=== PATIENT | male | born 1985 | race Caucasian/White ===

== ENCOUNTER 2019-06-27 17:22 | Emergency (ER) | payer OTHER, SELFPAY ==
[2019-06-27 17:31] VITALS: BP 171/103; PULSE 74; RESP 18; TEMP 37.4; O2SAT 97
--- NOTE | 2019-06-27 17:40 | ED.WOUNDLAC ---
HPI - Wound/Laceration General Chief Complaint: Wound/Laceration Stated Complaint: dog bites Time Seen by Provider: 06/27/19 17:40 Source: patient and family Limitations: no limitations History of Present Illness HPI narrative: Patient here with multiple superficial scratches from dog bite. Multiple areas to right lower leg and left lower leg. Patient states that he and his boss just got off work and were in a parking lot and a pitbull mix came up to him and attacked him. Patient does not know when his last tetanus shot was. Patient cleansed the area prior to arrival with peroxide and normal saline. No active bleeding. All wounds are superficial. Patient filled out paperwork to report dog bite. Patient denies any other injuries. Related Data Home Medications Medication Instructions Recorded Confirmed esomeprazole magnesium [Nexium] 40 mg PO DAILY 06/27/19 06/27/19 Allergies Allergy/AdvReac Type Severity Reaction Status Date / Time No Known Allergies Allergy Verified 06/27/19 17:37 Review of Systems Review of Systems: Narrative: CONSTITUTIONAL: Denies fever, chills, or sweats. EYES: Denies visual changes, redness, or discharge. ENT: Denies rhinorrhea, congestion, sore throat, or otalgia. CARDIOVASCULAR: Denies chest pain, palpitations, or edema. RESPIRATORY: Denies cough or dyspnea. GASTROINTESTINAL: Denies abdominal pain, nausea, vomiting, or diarrhea. GENITOURINARY: Denies dysuria or hematuria. SKIN: Denies rash or itching. Multiple superficial scratches to both lower extremities MUSCULOSKELETAL: Denies back pain, joint pain, or myalgia. NEUROLOGIC: Denies headache, numbness, or weakness. PSYCHIATRIC: Denies anxiety or depression. PMFSH Comments At time of signature, agree with nursing past medical, surgical, social and family history. There is no relevant family history pertinent to the presenting complaint Exam Narrative: Exam Narrative: GENERAL: Well-appearing, well-nourished, and in no acute distress. HEAD: Normocephalic, atraumatic. EYES: PERRLA and EOMI. ENT: Nares clear, no rhinorrhea or epistaxis. Mucous membranes moist. NECK: Supple. CHEST: Clear to auscultation. No respiratory distress. HEART: Regular rate and rhythm. No murmur heard. Normal peripheral pulses. ABDOMEN: Soft, nontender, nondistended, normal active bowel sounds. EXTREMITIES: Normal range of motion. No edema. SKIN: Warm, dry, no rash. Multiple superficial abrasions of various sizes from dog bite to right lower extremity and left lower extremity NEURO: No focal deficits. Alert and oriented x3. Nicole Coma Scale Eye Opening: Spontaneous 4 Nicole Coma Scale Motor: Obeys Commands 6 [place] Coma Scale Verbal: Oriented 5 [place] Coma Scale Total 15 Course Vital Signs Vital signs: Vital Signs Temperature 37.4 C 06/27/19 17:31 Pulse Rate 74 06/27/19 17:31 Respiratory Rate 18 06/27/19 17:31 Blood Pressure 171/103 H 06/27/19 17:31 Pulse Oximetry 97 06/27/19 17:31 Temperature 37.4 C 06/27/19 17:31 Pulse Rate 74 06/27/19 17:31 Respiratory Rate 18 06/27/19 17:31 Blood Pressure 171/103 H 06/27/19 17:31 Pulse Oximetry 97 06/27/19 17:31 Addressed elevated BP today. Today's blood pressure higher than recommended range. Discussed importance of follow -up with PCP and possible buttermaker helper effects/cardiovascular events related to HTN. Currently patient denies headache, dizziness, vision changes, CP or shortness of breath. MDM - Wound/Laceration Differential Diagnosis Differential diagnosis: Likely laceration, abscess, abrasion, avulsion of skin and other (Dog bite) Critical Care Time Critical Care Time Critical Care Time: No Discharge Plan Discharge Clinical Impression: Dog bite of extremity, Abrasion Patient Disposition: Home, Self-Care Condition: Stable Instructions: Antibiotic Form Additional Instructions: Keep the area clean and dry Wash with antibacterial soap and water May peg
[2019-06-27] MEDS: TETANUS,DIPHTHERIA,AC PERTUSSIS ADULT 0.5 ML (ADACEL) IM (17:43)
[2019-06-27 18:03] VITALS: BP 168/88
== END 2019-06-27 18:03 | disposition home or self-care (01) ==
PROVIDERS: Emergency Provider Nurse Practitioner Family
DX: S80.811A Abrasion, right lower leg, initial encounter (principal); S80.812A Abrasion, left lower leg, initial encounter; W54.0XXA Bitten by dog, initial encounter; Z23 Encounter for immunization; K21.9 Gastro-esophageal reflux disease without esophagitis
CPT/HCPCS: 90471; 90715; 99213; G0463

== ENCOUNTER 2022-04-08 09:52 | Emergency (ER) | payer OTHER, SELFPAY ==
[2022-04-08 09:58] VITALS: BP 142/88; PULSE 100; RESP 20; TEMP 36.3; O2SAT 96
--- NOTE | 2022-04-08 10:49 | ED.URI ---
HPI - URI/Sore Throat General Chief Complaint: Upper Respiratory Infection Stated Complaint: Cough/Fever/Dizziness Time Seen by Provider: 04/08/22 10:50 Source: patient and RN notes reviewed Mode of arrival: ambulatory Limitations: no limitations History of Present Illness HPI Narrative: 36-year-old male presented for complaint of headache, body aches, sinus pressure/congestion, cough, fever/chills. onset 3 days. Patient is a 1 pack per day smoker. Endorses some sob with coughing. Denies wheezing, nausea, vomiting. Not taking anything for symptoms. Endorses his is sick. MD elicited complaint: cough Related Data Home Medications Medication Instructions Recorded Confirmed esomeprazole magnesium 40 mg 40 mg PO DAILY 06/27/19 04/08/22 capsule,delayed release (Nexium) Allergies Allergy/AdvReac Type Severity Reaction Status Date / Time No Known Allergies Allergy Verified 04/08/22 10:27 Review of Systems Review of Systems: ROS per HPI Exam Narrative: GENERAL: Ill-appearing, nontoxic EYES: PERRLA, conjunctivae clear ENT: Mucous membranes moist. TMs pearly morrison with dull light reflex bilaterally; no tragal tenderness. Oropharynx erythematous without lesions or exudate CHEST: Clear to auscultation, breath sounds equal. No wheezing, rhonchi, rales, or stridor. No respiratory distress, speaks in full sentences. HEART: Regular rate and rhythm. No murmur heard. SKIN: Warm, dry, no rash. NEURO: Alert and oriented x3. PSYCH: Normal mood and affect Course Course Emergency Course: Patient is aware of diagnosis, understands and agrees to treatment plan. Anticipatory guidance given. Patient agrees to follow-up as directed and is aware of reasons to seek care at the emergency department. Portions of this record may have been created with voice recognition software Level of Care: Express Care Visit Vital Signs Vital signs: Vital Signs Temperature 97.4 F L 04/08/22 09:58 Pulse Rate 100 04/08/22 09:58 Respiratory Rate 20 04/08/22 09:58 Blood Pressure 142/88 H 04/08/22 09:58 Pulse Oximetry 96 04/08/22 09:58 Oxygen Delivery Room Air 04/08/22 09:58 Temperature 97.4 F L 04/08/22 09:58 Pulse Rate 100 04/08/22 09:58 Respiratory Rate 20 04/08/22 09:58 Blood Pressure 142/88 H 04/08/22 09:58 Pulse Oximetry 96 04/08/22 09:58 Oxygen Delivery Room Air 04/08/22 09:58 reviewed MDM - URI/Sore Throat MDM Narrative Medical decision making narrative: due to lack of resources, unable to perform influenza test at this time. patient is aware and understands. Advised supportive measures and signs/symptoms to go to the ER. Pt is appropriate for outpt treatment and f/u. Differential Diagnosis Differential diagnosis: Likely upper respiratory infection, viral infection, bronchitis and influenza Discharge Plan Discharge Clinical Impression: Viral infection Patient Disposition: Home, Self-Care Condition: Stable Instructions: Viral Syndrome (ED) Additional Instructions: You should avoid crowds until you are fever free for 24 hours without the use of fever reducing medications, or the symptoms are improved Rest. Drink plenty of fluids. Tylenol 1000mg every 8 hours as needed for pain/fever Recommend Flonase spray and Zyrtec (or Claritin/Sherlyn) for sinus pressure/congestion over the counter Cough syrup may cause drowsiness; avoid driving or take it at night time. Follow up with your primary care provider as needed in 1-2 weeks Go to the ER for worsening symptoms or concerns Prescriptions: New prednisone 50 mg tablet 50 mg PO DAILY Qty: 5 0RF No Action esomeprazole magnesium [Nexium] 40 mg Capsule,Delayed Release(Dr/Ec) 40 mg PO DAILY amoxicillin-pot clavulanate [Augmentin] 875-125 mg tablet 1 tablet PO Q12H 5 Days Qty: 10 0RF Follow-up/Referrals: PHYSICIAN,OPHTHALMOLOGY SURGICAL TECHNICIAN [Primary Care Provider] - Stand Alone Forms: Work/School Release IP
== END 2022-04-08 11:02 | disposition home or self-care (01) ==
PROVIDERS: Emergency Provider Nurse Practitioner Family
DX: B34.9 Viral infection, unspecified (principal); F17.290 Nicotine dependence, other tobacco product, uncomplicated
CPT/HCPCS: 99213; G0463

== ENCOUNTER 2024-02-15 08:35 | Outpatient (CLI) | payer OTHER, SELFPAY ==
[2024-02-15 18:48] LABS: Basophils Absolute Auto 0.1 K/mm3 (0.0-0.1); Basophils Percent Auto 1.1 % (0.2-1.2); Eosinophils Absolute Auto 0.2 K/mm3 (0-0.3); Hematocrit 49.3 % (42.0-52.0); Hemoglobin 15.9 g/dL (14.0-18.0); Immature Granulocyte Absolute 0.01 K/mm3 (0.00-0.031); Immature Granulocyte Percent A 0.1 % (0-0.5); Lymphocytes Absolute Auto 1.83 K/mm3 (0.9-3.2); Lymphocytes Percent Auto 25.8 % (18.3-44.2); Mean Corpuscular HGB Conc 32.3 g/dl (32-36); Mean Corpuscular Hemoglobin 29.7 pg (26-34); Mean Corpuscular Volume 92.1 fl (80-100); Mean Platelet Volume 10.5 fl (7.4-10.4); Monocytes Absolute Auto 0.5 K/mm3 (0.1-0.6); Monocytes Percent Auto 7.2 % (2.6-8.5); Neutrophils Absolute Auto 4.5 K/mm3 (1.3-6.7); Neutrophils Percent Auto 62.8 % (45.5-73.1); Platelet Count Result 265 k/mm3 (150-375); Red Blood Count 5.35 M/mm3 (4.6-6.20); Red Cell Distribution Width 13.1 % (11.5-14.5); White Blood Count 7.1 K/mm3 (4.5-10.0)
[2024-02-15 19:19] LABS: Alanine Aminotransferase 37 U/L (6-50); Albumin Level 4.1 g/dL (3.5-5.1); Alkaline Phosphatase 76 U/L (38-126); Anion Gap 11 mmol/L (4-12); Aspartate Amino Transferase 48 U/L (17-59); Bilirubin,Total 0.3 mg/dL (0.2-1.3); Blood Urea Nitrogen 16 mg/dL (9-20); Calcium 9.3 mg/dL (8.4-10.2); Carbon Dioxide 22 mmol/L (22-30); Chloride 107 mmol/L (98-107); Cholesterol 182 mg/dL (0-200); Estimated Glomerular Filt Rate > 60; Glucose 73 mg/dL (65-110); HDL Direct 34 mg/dL; Magnesium 2.3 mg/dL (1.6-2.3); Potassium 3.9 mmol/L (3.4-5.0); Sodium 140 mmol/L (137-145); Triglycerides 170 mg/dL (<150)
[2024-02-15 19:29] LABS: Hemoglobin A1C 5.3 % (<5.7)
[2024-02-15 19:42] LABS: LDL Cholesterol Direct 110 mg/dL
[2024-02-20 22:08] LABS: Testosterone Free 35.2 pg/mL (35.0-155.0); Testosterone Total 245 ng/dL (250-1100)
== END 2024-02-15 08:36 | disposition home or self-care (01) ==
PROVIDERS: PCP Nurse Practitioner Adult Health; Visit Provider Nurse Practitioner Adult Health
DX: E66.01 Morbid (severe) obesity due to excess calories (principal); I10 Essential (primary) hypertension; N52.9 Male erectile dysfunction, unspecified
CPT/HCPCS: 36415; 80053; 80061; 83036; 83735; 84402; 84403; 84443; 85025

== ENCOUNTER 2024-03-13 15:42 | Outpatient (CLI) | payer OTHER, SELFPAY ==
--- NOTE | ~2024-03-13 | US_ITS ---
EXAMINATION: US renal BI DATE: 03/13/2024 16:00 INDICATION: Essential, primary hypertension TECHNIQUE: Multiple ultrasound grayscale images of the kidneys were obtained. COMPARISON: None. FINDINGS: The right kidney measures 10.0 x 5.1 x 6.1 cm. The left kidney measures 10.8 x 4.9 x 5.3 cm. The kidn eys demonstrate normal echogenicity. There is no hydronephrosis in either kidney. No stones identifi ed. The bladder is normal. IMPRESSION: 1. Normal kidneys without hydronephrosis. Reviewed, dictated and finalized at location B. CLERK PASSENGER
== END 2024-03-13 15:43 | disposition home or self-care (01) ==
LOC: MICIMG 15:43
PROVIDERS: PCP Nurse Practitioner Adult Health; Visit Provider Nurse Practitioner Adult Health
DX: I10 Essential (primary) hypertension (principal)
CPT/HCPCS: 76775

== ENCOUNTER 2024-03-17 10:51 | Outpatient (CLI) | payer OTHER, SELFPAY ==
--- NOTE | 2024-03-17 11:22 | EST_ITS ---
Patient Info Name: Yony Veras Age: 38 years : 1985 Gender: Male Ht: 76 in Wt: 412 lbs BSA: 3.26 m2 HR: 68 bpm BP: 115 / 85 mmHg Exam Date: 03/17/2024 11:34 AM Exam Location: [facility] Patient Status: Outpatient Admit Date: 03/17/2024 Staff Ordering Physician: Melissa Villalba APRN Attending Provider: Melissa Villalba APRN Exercise Technologist: Ivana Campos ONEAL Exercise Physician: Alexx Woodson DO Exam Type: CA stress test treadmill Study Info A treadmill exercise stress test was performed. Summary 1. 1. Negative Jimbo exercise stress test for ischemic ST changes by ECG criteria. 2. 2. Reduced functional capacity, achieving 7.7 METs of workload. 3. 3. Hypertensive response to exercise. 4. 4. Appropriate HR response to exercise. 5. 5. Appropriate HR recovery at 1 minute post exercise. 6. 6. No imaging with stress testing. 7. 7. Patient informed of the above results. Protocol: Jimbo Stress ECG Details Stage: REST Duration (min): 1 min : 0 sec Speed (mph): 0.0 Grade (%): 0 HR (bpm): 69 SBP (mmHg): 115 DBP (mmHg): 85 METS: --- Stage: REST Duration (min): 3 min : 28 sec Speed (mph): 0.0 Grade (%): 0 HR (bpm): 93 SBP (mmHg): 115 DBP (mmHg): 85 METS: --- Stage: STAGE 1 Duration (min): 1 min : 0 sec Speed (mph): 1.7 Grade (%): 10 HR (bpm): 111 SBP (mmHg): 115 DBP (mmHg): 85 METS: --- Stage: STAGE 1 Duration (min): 2 min : 0 sec Speed (mph): 1.7 Grade (%): 10 HR (bpm): 123 SBP (mmHg): 115 DBP (mmHg): 85 METS: --- Stage: STAGE 1 Duration (min): 3 min : 0 sec Speed (mph): 1.7 Grade (%): 10 HR (bpm): 129 SBP (mmHg): 174 DBP (mmHg): 79 METS: --- Stage: STAGE 2 Duration (min): 1 min : 0 sec Speed (mph): 2.5 Grade (%): 12 HR (bpm): 140 SBP (mmHg): 174 DBP (mmHg): 79 METS: --- Stage: STAGE 2 Duration (min): 2 min : 0 sec Speed (mph): 2.5 Grade (%): 12 HR (bpm): 148 SBP (mmHg): 174 DBP (mmHg): 79 METS: --- Stage: STAGE 2 Duration (min): 3 min : 0 sec Speed (mph): 2.5 Grade (%): 12 HR (bpm): 153 SBP (mmHg): 174 DBP (mmHg): 79 METS: --- Stage: STAGE 3 Duration (min): 0 min : 21 sec Speed (mph): 3.4 Grade (%): 14 HR (bpm): 158 SBP (mmHg): 174 DBP (mmHg): 79 METS: --- Stage: RECOVERY Duration (min): 0 min : 38 sec Speed (mph): 0.0 Grade (%): 0 HR (bpm): 154 SBP (mmHg): 212 DBP (mmHg): 120 METS: --- Stage: RECOVERY Duration (min): 1 min : 38 sec Speed (mph): 0.0 Grade (%): 0 HR (bpm): 124 SBP (mmHg): 212 DBP (mmHg): 120 METS: --- Stage: RECOVERY Duration (min): 2 min : 38 sec Speed (mph): 0.0 Grade (%): 0 HR (bpm): 114 SBP (mmHg): 212 DBP (mmHg): 120 METS: --- Stage: RECOVERY Duration (min): 3 min : 28 sec Speed (mph): 0.0 Grade (%): 0 HR (bpm): 106 SBP (mmHg): 172 DBP (mmHg): 79 METS: --- Rest HR: 93 bpm Peak HR: 162 bpm Rest Sys BP: 115 mmHg Peak Sys BP: 212 mmHg Max Pred HR: 183 bpm % Max Pred HR: 89 % Target HR: 156 bpm Max RPP: 34,344 bpm*mmHg Torres Score: 2 BP Response: Patient exhibited a hypertensive response with stress Termination Reason: Reached target heart rate or workload Cardiac Symptoms: Shortness of breath Max ST Seg Deviation: -0.90 mm Total Time: 6 min : 21 sec Rest Damian BP: 85 mmHg Peak Damian BP: 120 mmHg Angina Score: None Total METS: 7.7 Resting ECG Sinus rhythm. Stress ECG No ST changes. Arrhythmias None. Report Signatures
== END 2024-03-17 10:52 | disposition home or self-care (01) ==
LOC: ANHCARD 10:53
PROVIDERS: PCP Nurse Practitioner Adult Health; Visit Provider Nurse Practitioner Adult Health
DX: Z82.49 Family history of ischemic heart disease and other diseases of the circulatory system (principal)
CPT/HCPCS: 93017